=== PATIENT | male | born 1945 | race Caucasian/White ===

== ENCOUNTER 2018-03-24 06:38 | Emergency (ER) | payer OTHER ==
--- NOTE | 2018-03-24 07:36 | EDPHY ---
H & P Stated Complaint: Right lower leg pain Time Seen by Provider: 03/24/18 07:05 HPI/ROS: CHIEF COMPLAINT: Right leg pain HISTORY OF PRESENT ILLNESS: A 73-year-old male with DM presents with right leg pain. He awoke at 0500 with an achiness in the right calf. The achiness increased with ambulation and was moderate. The discomfort is now mild. No associated sx and no weakness/numbness. No recent trauma and no prior history of thromboembolism. REVIEW OF SYSTEMS: complete 10 point ROS reviewed and is negative except for the noted elements in the HPI - Personal History Current Tetanus/Diphtheria Vaccine: Yes Current Tetanus Diphtheria and Acellular Pertussis (TDAP): Yes - Medical/Surgical History Hx Asthma: No Hx Chronic Respiratory Disease: No Hx Diabetes: Yes Hx Cardiac Disease: No Hx Renal Disease: No Hx Cirrhosis: No Hx Alcoholism: No Hx HIV/AIDS: No Hx Splenectomy or Spleen Trauma: No Other PMH: Htn, right hip replacement, diabetes, kidney stones - Social History Smoking Status: Never smoked - Physical Exam Exam: General Appearance: Alert, pleasant Eyes: Pupils equal and round, no conjunctival pallor ENT, Mouth: Mucous membranes moist Neck: Normal inspection Respiratory: Lungs are clear to auscultation Cardiovascular: Regular rate and rhythm Gastrointestinal: Abdomen is soft and nontender Neurological: A&O, nonfocal, normal gait Skin: Warm and dry, no erythema Extremities: Mild calf tenderness, no swelling Vascular: 2+ dorsalis pedis and posterior tibial pulses, capillary refill brisk Psychiatric: Mood and affect normal Constitutional: Initial Vital Signs Temperature (C) 36.3 C 03/24/18 06:42 Heart Rate 65 03/24/18 06:42 Respiratory Rate 18 03/24/18 06:42 Blood Pressure 172/89 H 03/24/18 06:42 O2 Sat (%) 94 03/24/18 06:42 O2 Delivery Mode Room Air Allergies/Adverse Reactions: No Known Allergies Allergy (Unverified 03/24/18 06:48) Home Medications: Medication Instructions Recorded Atorvastatin Calcium 03/24/18 Enalapril Maleate 03/24/18 Metformin HCl [Fortamet] 03/24/18 Medical Decision Making - Diagnostics Imaging Results: LLE sono: negative for DVT Imaging: Discussed imaging studies w/ square dance caller Radiologist ED Course/Re-evaluation: This pt presents with left calf pain and a normal neurovascular exam. No evidence of infeciton. LLE sono negative for DVT. c/w musculoskeletal etiology. Warning signs discussed. f/u PCP. Differential Diagnosis: DVT, compartment syndrome, fx, cellulitis, strain, arterial compromise, sciatica Departure - Departure Disposition: Home, Routine, Self-Care Clinical Impression: Right calf pain Condition: Good Instructions: Leg Pain (ED) Additional Instructions: Return for worsening symptoms or any concerns. Referrals: Jerica Harp MD [[facility] Primary Care Provider] - As per Instructions
[2018-03-24 08:45] VITALS: BP 141/89
== END 2018-03-24 08:49 | disposition home or self-care (01) ==
DX: M79.661 Pain in right lower leg (principal)